=== PATIENT | male | born 1975 | race Two or more races ===

== ENCOUNTER 2020-09-19 18:04 | Emergency (ER) | payer OTHER ==
[~2020-09-19] VITALS: Ht 160 cm; Wt 98.0 kg
[2020-09-19] MEDS ORDERED: ZESTRIL5 MG (18:22)
== END 2020-09-19 22:26 | disposition home or self-care (01) ==
LOC: ER 18:04
DX: S40.822A Blister (nonthermal) of left upper arm, initial encounter (principal); T65.94XA Toxic effect of unspecified substance, undetermined, initial encounter; Y92.012 Bathroom of single-family (private) house as the place of occurrence of the external cause